=== PATIENT | female | born 1970 | race Caucasian/White ===

== ENCOUNTER 2020-07-03 10:10 | Outpatient (REF) | payer MEDICARE, SELFPAY | END 2020-07-03 10:11 | disposition home or self-care (01) | LOC: HO.HMGCLDS 10:10 | PROVIDERS: PCP Internal Medicine; Visit Provider Internal Medicine | DX: Z20.828 Contact with and (suspected) exposure to other viral communicable diseases (principal) | CPT/HCPCS: 87635 ==

== ENCOUNTER 2020-08-05 11:42 | Outpatient (REF) | payer MEDICARE, SELFPAY | END 2020-08-05 11:43 | disposition home or self-care (01) | LOC: HO.HMGCLDS 11:42 | PROVIDERS: PCP Internal Medicine; Visit Provider Internal Medicine | DX: Z20.828 Contact with and (suspected) exposure to other viral communicable diseases (principal) | CPT/HCPCS: C9803; U0003 ==

== ENCOUNTER 2021-07-30 09:22 | Outpatient (REF) | payer MEDICARE, SELFPAY ==
[2021-07-30 11:25] LABS: MANUAL DIFF FLAG NO
[2021-07-30 11:43] LABS: Basophils Percent Auto 0.1 % (0-2); Eosinophils Absolute Auto 0.1 X10*3/uL (0.0-0.4); Eosinophils Percent Auto 1.3 % (0-4); Hematocrit 41.4 % (37.0-47.0); Hemoglobin 13.6 g/dl (12.0-16.0); Imm Gran Abs Auto 0.03 X10*3/uL (0.00-0.03); Imm Gran Pct Auto 0.3 % (0.0-0.4); Lymphocytes Absolute Auto 2.8 X10*3/uL (1.2-4.9); Lymphocytes Percent Auto 32.5 % (20-40); Mean Corpuscular HGB Conc 32.9 g/dl (31.0-35.0); Mean Corpuscular Hemoglobin 28.9 pg (27.0-33.0); Mean Corpuscular Volume 87.9 fL (80.0-98.0); Mean Platelet Volume 10.1 fL (9.4-12.3); Monocytes Absolute Auto 0.5 X10*3/uL (0.1-1.2); Monocytes Percent Auto 5.2 % (2-11); Neutrophils Absolute Auto 5.23 x10*3/uL (2.0-8.3); Neutrophils Percent Auto 60.6 % (45-73); Platelet Count 292 X10*3/uL (160-400); Red Blood Count 4.71 X10*6/uL (4.20-5.50); Red Cell Distribution Width 12.9 % (11.0-16.0); White Blood Count 8.6 X10*3/uL (4.8-10.8)
[2021-07-30 12:20] LABS: Alanine Aminotransferase 12 U/L (0-31); Albumin Level 4.1 g/dL (3.5-5.0); Alkaline Phosphatase 63 U/L (39-117); Anion Gap 11 (12-20); Aspartate Amino Transferase 15 U/L (5-31); Bilirubin Total 0.6 mg/dL (0.0-1.0); Blood Urea Nitrogen 13 mg/dL (9-16); Calcium 9.5 mg/dL (8.4-10.2); Carbon Dioxide 26 mmol/L (22-29); Chloride 106 mmol/L (96-108); Cholesterol 199 mg/dL; Estimated Glomerular Filt Rate > 60; Glucose Fasting 88 mg/dL (60-99); HDL Cholesterol 52 mg/dL; LDL Cholesterol Calculated 119 mg/dl; Potassium 3.9 mmol/L (3.3-5.1); Sodium 139 mmol/L (135-145); Total Protein 6.7 g/dL (6.5-8.0); Triglycerides 142 mg/dL
[2021-07-30 12:30] LABS: Thyroid Stimulating Hormone 1.86 uIU/mL (0.32-4.0); Vitamin D 25-OH Total 26.1 ng/mL (>30)
== END 2021-07-30 09:23 | disposition home or self-care (01) ==
LOC: HO.HMGCLDS 09:22
PROVIDERS: Visit Provider Internal Medicine
DX: I10 Essential (primary) hypertension (principal); E78.00 Pure hypercholesterolemia, unspecified
CPT/HCPCS: 36415; 80053; 80061; 82306; 84443; 85025

== ENCOUNTER 2021-08-11 13:07 | Outpatient (REF) | payer MEDICARE, SELFPAY | END 2021-08-11 13:08 | disposition home or self-care (01) | LOC: HO.HMGCLDS 13:07 | PROVIDERS: PCP Internal Medicine; Visit Provider Internal Medicine | DX: Z20.822 Contact with and (suspected) exposure to COVID-19 (principal) | CPT/HCPCS: C9803; U0003; U0005 ==

== ENCOUNTER 2022-07-27 08:58 | Outpatient (REF) | payer MEDICARE, SELFPAY ==
[2022-07-27 11:37] LABS: MANUAL DIFF FLAG NO
[2022-07-27 11:53] LABS: Basophils Percent Auto 0.4 % (0-2); Eosinophils Absolute Auto 0.1 X10*3/uL (0.0-0.4); Eosinophils Percent Auto 1.1 % (0-4); Hematocrit 46.2 % (37.0-47.0); Hemoglobin 15.5 g/dl (12.0-16.0); Imm Gran Abs Auto 0.02 X10*3/uL (0.00-0.03); Imm Gran Pct Auto 0.3 % (0.0-0.4); Lymphocytes Absolute Auto 2.7 X10*3/uL (1.2-4.9); Lymphocytes Percent Auto 34.4 % (20-40); Mean Corpuscular HGB Conc 33.5 g/dl (31.0-35.0); Mean Corpuscular Hemoglobin 28.4 pg (27.0-33.0); Mean Corpuscular Volume 84.6 fL (80.0-98.0); Mean Platelet Volume 10.1 fL (9.4-12.3); Monocytes Absolute Auto 0.6 X10*3/uL (0.1-1.2); Neutrophils Absolute Auto 4.5 x10*3/uL (2.0-8.3); Neutrophils Percent Auto 56.8 % (45-73); Platelet Count 378 X10*3/uL (160-400); Red Blood Count 5.46 X10*6/uL (4.20-5.50); Red Cell Distribution Width 12.6 % (11.0-16.0); White Blood Count 7.8 X10*3/uL (4.8-10.8)
[2022-07-27 12:31] LABS: Thyroid Stimulating Hormone 1.15 uIU/mL (0.32-4.0); Vitamin D 25-OH Total 27.1 ng/mL (>30)
[2022-07-27 12:41] LABS: Alanine Aminotransferase 16 U/L (0-31); Albumin Level 4.6 g/dL (3.5-5.0); Alkaline Phosphatase 75 U/L (39-117); Anion Gap 19 (12-20); Aspartate Amino Transferase 22 U/L (5-31); Bilirubin Total 0.8 mg/dL (0.0-1.0); Blood Urea Nitrogen 19 mg/dL (9-16); Calcium 10.5 mg/dL (8.4-10.2); Carbon Dioxide 25 mmol/L (22-29); Chloride 102 mmol/L (96-108); Cholesterol 236 mg/dL; Estimated Glomerular Filt Rate > 60; Glucose Fasting 91 mg/dL (60-99); HDL Cholesterol 59 mg/dL; LDL Cholesterol Calculated 155 mg/dl; Potassium 3.1 mmol/L (3.3-5.1); Sodium 143 mmol/L (135-145); Total Protein 7.7 g/dL (6.5-8.0); Triglycerides 111 mg/dL
== END 2022-07-27 08:59 | disposition home or self-care (01) ==
LOC: HO.HMGCLDS 08:58
PROVIDERS: PCP Internal Medicine; Visit Provider Internal Medicine
DX: Z00.00 Encounter for general adult medical examination without abnormal findings (principal); E78.00 Pure hypercholesterolemia, unspecified; I10 Essential (primary) hypertension
CPT/HCPCS: 36415; 80053; 80061; 82306; 84443; 85025

== ENCOUNTER 2024-03-03 08:30 | Day surgery (SDC) | payer BC, SELFPAY ==
[2024-03-01 15:08] VITALS: BMI 36.3
[2024-03-03 08:37] VITALS: BMI 34.0
[2024-03-03 08:57] VITALS: BP 152/78; PULSE 72; RESP 16; TEMP 35.8; O2SAT 95
[2024-03-03] MEDS: Lactated Ringers 1,000 ML 80 ML IVCONT (08:59)
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
--- NOTE | 2024-03-03 10:29 | P.HPSUR_ITS ---
Pre-Procedural Eval Section A - 24 Hr Update-Section A only Date of Service: 03/03/24 Section B - Complete if H&P > 30 days Chief Complaint: Encounter for screening for malignant neoplasm of Details of Present Illness: see H&P no changes Relevant Family History (Specify if Yes): No Relevant Social History: None Present Medications: see Short Stay Collaborative assessment Medical History: No relevant PMH History of Previous Operations: No relevant previous surgery Allergies: Allergies Allergy/AdvReac Type Severity Reaction Status Date / Time No Known Allergies Allergy Verified 03/01/24 15:05 Review of Systems Sugical H&P ROS: Negative: Constitution, Cardiovascular, Respiratory, Neurological, Psychiatric, Hem-Onc, Allergic/Immunologic, Gastrointestinal, Genitourinary, Musculoskeletal, Integumentary, Endocrine and Eyes/Ears/No se/Throat Exam Surgical H&P Exam: Normal: HEENT, Normal: Heart, Normal: Lungs, Normal: Extremities, Normal: Abdomen, Normal: Skin and Normal: Neurological Plan Diagnosis/Plan: Unchanged I have reviewed the history and physical and performed a pertinent physical examination on my patient. No changes have occurred unless specified. Time Spent With Patient Time: Total time managing care of this patient today ____ minutes.
[2024-03-03 11:19] VITALS: BP 90/41; PULSE 62; RESP 16; TEMP 36.1; O2SAT 93
[2024-03-03 11:21] VITALS: BP 92/49; PULSE 52; RESP 16; O2SAT 96
[2024-03-03 11:38] VITALS: BP 108/58; PULSE 54; RESP 16; O2SAT 98
--- NOTE | 2024-03-03 11:43 | OP_ITS ---
DATE OF SERVICE: 03/03/2024 SURGEON: Magdaleno Dunn MD INDICATIONS: Colon cancer screening and prior history of adenomatous colon polyps. PREOPERATIVE DIAGNOSIS: POSTOPERATIVE DIAGNOSIS: PROCEDURE PERFORMED: Colonoscopy to the terminal ileum with snare polypectomy. ESTIMATED BLOOD LOSS: COMPLICATIONS: ANESTHESIA: Monitored anesthesia care. ASSISTANTS: SPECIMENS: DESCRIPTION OF PROCEDURE: A history and physical was performed. The risks and benefits of the procedure were explained to the patient and informed consent was obtained. The patient was placed in the left lateral decubitus position. A digital rectal exam was performed and was found to be normal. The Olympus pediatric video colonoscope was introduced into the rectum and advanced to the cecum. The cecum was identified by transillumination, palpation, and identification of ileocecal valve. Examination was performed and the scope was removed. She tolerated the procedure well and was returned to the recovery area in stable condition. FINDINGS: The terminal ileum was examined and appeared normal. The visualized colonic mucosa was normal. The quality of the prep was good. A single polyp measuring approximately 7 mm were identified in the rectum and removed with a biopsy forceps. No other polyps were identified. Retroflexed examination showed small internal hemorrhoids. IMPRESSION: Colon polyp. RECOMMENDATION: Follow up the biopsy results. MD RAMIRO Milner/MELVINL / [id number]
[2024-03-03 11:52] VITALS: BP 104/62; PULSE 59; RESP 16; TEMP 36.1; O2SAT 98
== END 2024-03-03 12:15 | disposition home or self-care (01) ==
PROVIDERS: PCP Obstetrics & Gynecology; Visit Provider Internal Medicine Gastroenterology
PROC: 0DJD8ZZ Inspection of Lower Intestinal Tract, Via Natural or Artificial Opening Endoscopic (ICD-10-PCS; CPT 45378; principal; 2024-03-03 10:20)
DX: Z12.11 Encounter for screening for malignant neoplasm of colon (principal); D12.8 Benign neoplasm of rectum; Z86.010 Personal history of colon polyps; I10 Essential (primary) hypertension; H54.62 Unqualified visual loss, left eye, normal vision right eye; Z79.899 Other long term (current) drug therapy
CPT/HCPCS: 45385; 88305; J2704

== ENCOUNTER 2024-04-01 12:18 | Outpatient (REF) | payer BC, SELFPAY ==
[2024-04-01 13:00] LABS: MANUAL DIFF FLAG NO
[2024-04-01 13:05] LABS: Basophils Percent Auto 0.4 % (0-2); Eosinophils Absolute Auto 0.1 X10*3/uL (0.0-0.4); Eosinophils Percent Auto 1.7 % (0-4); Hematocrit 41.3 % (37.0-47.0); Hemoglobin 13.6 g/dl (12.0-16.0); Imm Gran Abs Auto 0.03 X10*3/uL (0.00-0.03); Imm Gran Pct Auto 0.4 % (0.0-0.4); Lymphocytes Absolute Auto 3.2 X10*3/uL (1.2-4.9); Lymphocytes Percent Auto 41.4 % (20-40); Mean Corpuscular HGB Conc 32.9 g/dl (31.0-35.0); Mean Corpuscular Hemoglobin 27.9 pg (27.0-33.0); Mean Corpuscular Volume 84.8 fL (80.0-98.0); Mean Platelet Volume 10.2 fL (9.4-12.3); Monocytes Absolute Auto 0.4 X10*3/uL (0.1-1.2); Monocytes Percent Auto 5.7 % (2-11); Neutrophils Absolute Auto 3.9 x10*3/uL (2.0-8.3); Neutrophils Percent Auto 50.4 % (45-73); Platelet Count 316 X10*3/uL (160-400); Red Blood Count 4.87 X10*6/uL (4.20-5.50); Red Cell Distribution Width 12.8 % (11.0-16.0); White Blood Count 7.7 X10*3/uL (4.8-10.8)
[2024-04-01 13:46] LABS: Alanine Aminotransferase 19 U/L (0-31); Albumin Level 4.1 g/dL (3.5-5.0); Alkaline Phosphatase 74 U/L (39-117); Anion Gap 12 (12-20); Aspartate Amino Transferase 23 U/L (5-31); Bilirubin Total 0.4 mg/dL (0.0-1.0); Blood Urea Nitrogen 17 mg/dL (9-16); Calcium 9.7 mg/dL (8.4-10.2); Carbon Dioxide 28 mmol/L (22-29); Chloride 106 mmol/L (96-108); Cholesterol 194 mg/dL (<200); Estimated Glomerular Filt Rate > 60; Glucose Fasting 87 mg/dL (60-99); HDL Cholesterol 49 mg/dL (>40); LDL Cholesterol Calculated 121 mg/dL (<100); Potassium 3.5 mmol/L (3.3-5.1); Sodium 142 mmol/L (135-145); Triglycerides 121 mg/dL (<150)
[2024-04-01 14:00] LABS: Thyroid Stimulating Hormone 1.24 uIU/mL (0.32-4.0); Vitamin D 25-OH Total 30.6 ng/mL (>30)
== END 2024-04-01 12:19 | disposition home or self-care (01) ==
LOC: HO.HMGCLDS 12:18
PROVIDERS: PCP Internal Medicine; Visit Provider Internal Medicine
DX: Z00.00 Encounter for general adult medical examination without abnormal findings (principal); I10 Essential (primary) hypertension; E78.00 Pure hypercholesterolemia, unspecified; F41.9 Anxiety disorder, unspecified
CPT/HCPCS: 36415; 80053; 80061; 82306; 84443; 85025

== ENCOUNTER 2024-11-03 08:59 | Outpatient (REF) | payer BC, SELFPAY ==
--- OUTSIDE RECORDS SUMMARY | 2024-11-03 09:18 | XMS_ITS ---
Author Organization Francis Bacon DO, FACP Address [address], [place] [phone] Care Team Providers Care Cartography Teacher Name Role Phone Francis Bacon Primary Care Provider REASON FOR VISIT FYI only Encounters Encounter Location Date Provider Diagnosis Francis Bacon DO FACP [address] [place], [place] [phone] 09/05/2024 Francis Bacon PLAN OF TREATMENT No Information
--- OUTSIDE RECORDS SUMMARY | 2024-11-03 09:19 | XMS_ITS ---
Author Organization [facility] Address [address] [place] [address] Care Team Providers Care Ampoule Washing Machine Operator Name Role Phone Jordi (RETIRED) Francis SANTIAGO Primary Care Provid er Unavailable Magdaleno Dunn Jr Unavailable [phone] ALLERGIES No Known Allergies REASON FOR VISIT Patient presents today for a screening colonoscopy MEDICATIONS Medication SIG (Take, Route, Frequency, Duration) Notes Start Date End Date Status MiraLax (colon prep) 8.3 oun ce ((238) grams mixed with Gatorade or Crystal Light orally begin at 5:00 p.m. the day before the procedure for 1 day 01/20/2024 Active Escitalopram Oxalate 10 MG Oral for 90 Active hydroCHLOROthiazide 25 MG TAKE 1 TABLET BY MOUTH EVERY DAY Oral for 90 Active Lisinopril 5 MG TAKE 1 TABLET BY MOUTH EVERY DAY Oral for 90 Active SOCIAL HISTORY Tobacco Use: Social History Observation Description Date Details (start date - stop date) Never Smoker NA - NA Sex Assigned At : Social History Observation Description Sex Assigned At Unknown Tobacco Use/Smoking Question Answer Notes Patient is a nonsmoker Alcohol Screen Question Answer Notes Did you have a drink containing alcohol in the p ast year? 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 (Z79.899) Active confirmed 49300018481494000 Problem Encounter for other preprocedural examination (Z01.818) Active confirmed 436211824 VITAL SIGNS BMI 36.33 kg/m2 01/20/2024 Blood pressure systolic 00 mm Hg 01/20/20 24 Blood pressure diastolic 00 mm Hg 024 Height 67 in 01/20/2024 Weight 232 lbs 01/20/2024 Encounters Encounter Location Date Provider Diagnosis [facility] [address] [place] [address] 01/20/2024 Magdaleno Dunn Jr Colon cancer screening Z12.11 ; Encounter for other preprocedural examination Z01.818 ; Personal history of colonic polyps Z86.010 and [facility] current use of diuretic Z79.899 ASSESSMENTS Encounter Date Diagnosis Assessment Notes Treatment Notes Treatment Clinical Notes 01/20/2024 Colon cancer screening (ICD-10 - Z12.11) Colonoscopy material was printed 01/20/2024 Encounter for other preprocedural examination (ICD-10 - Z01.818) 01/20/2024 Personal history of colonic polyps (ICD-10 - Z86.010) 01/20/2024 relay adjuster current use of diuretic (ICD-10 - Z79.899) PLAN OF TREATMENT Medication Medication Name Sig Start Date Stop Date Notes MiraLax (colon prep) 8.3 oun ce ((238) grams mixed with Gatorade or Crystal Light orally begin at 5:00 p.m. the day before the procedure for 1 day 01/20/2024 Treatment Notes Assessment Notes Colon cancer screening Colonoscopy mater ial was printed Future Test Test Name Order Date COLONOSCOPY 01/20/2024 Next Appt Details Follow Up: 1 Year, Reason: Progress Notes * Examination Category Sub-Category Detail Notes General Examination GENERAL APPEARANCE: in no ac native distress HEAD: normocephalic EYES: sclera non-icteric NECK/THYROID: no lymphadenopathy HEART: S1, S2 normal, no mu rmurs CHEST: normal shape and exp ansion LUNGS: clear to auscultatio n bilaterally ABDOMEN: soft, nontender, non distended, bowel sounds present, no organomegaly SKIN: anicteric EXTREMITIES: no clubbing, cyanosi s, or edema PSYCH: cognitive function i ntact ORAL CAVITY: mucosa moist
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
--- OUTSIDE RECORDS SUMMARY | 2024-11-03 09:19 | XMS_ITS ---
Author Organization [facility] Address [address] [place] [phone] Care Team Providers Care Tour Manager Name Role Phone Jordi (RETIRED) Francis SANTIAGO Primary Care Provid er Unavailable Magdaleno Dunn Jr [phone] REASON FOR VISIT pathology Encounters Encounter Location Date Provider Diagnosis [facility] [address] [place] [phone] 03/08/2024 Magdaleno Dunn Jr PLAN OF TREATMENT No Information
--- OUTSIDE RECORDS SUMMARY | 2024-11-03 09:19 | XMS_ITS ---
Author Organization Francis Bacon DO, [facility] Address [address], [place] [phone] Care Team Providers Care Director Of Operations Support Name Role Phone Francis Bacon Primary Care Provider REASON FOR VISIT Refills MEDICATIONS Medication SIG (Take, Route, Frequency, Duration) Notes Start Date End Date Status Zolpidem Tartrate 5 MG 1 tablet at bedti me as needed Orally Once a day for 30 days 09/05/2024 Active Lisinopril 5 MG 1 tablet Orally Once a day for 90 days Active hydroCHLOROthiazide 25 MG 1 tablet in th e morning Orally Once a day for 90 days Active Encounters Encounter Location Date Provider Diagnosis Francis Bacon DO, [address] [phone] 09/05/2024 Francis Bacon Anxiety F41.9 and Essential hypertension I10 ASSESSMENTS Encounter Date Diagnosis Assessment Notes Treatment Notes Treatment Clinical Notes 09/05/2024 Anxiety (ICD-10 - F41.9) 09/05/2024 Essential hypertension (ICD-10 - I10) PLAN OF TREATMENT Medication Medication Name Sig Start Date Stop Date Notes Zolpidem Tartrate 5 MG 1 tablet at bedti me as needed Orally Once a day for 30 days 09/05/2024 Lisinopril 5 MG 1 tablet Orally Once a day for 90 days hydroCHLOROthiazide 25 MG 1 tablet in th e morning Orally Once a day for 90 days
--- OUTSIDE RECORDS SUMMARY | 2024-11-03 09:19 | XMS_ITS ---
Author Organization [facility] Address [address] [place] [address] Care Team Providers Care Glass Furnace Tender Name Role Phone Jordi (RETIRED) Francis SANTIAGO Primary Care Provid er Unavailable Magdaleno Dunn Jr REASON FOR VISIT screening,hx polyps Encounters Encounter Location Date Provider Diagnosis [facility] Outpatient [address] [place] [phone] 03/03/2024 Magdaleno Dunn Jr Encounter for screening colonoscopy Z12.11 ; Personal history of colonic polyps Z86.010 and Colon polyps K63.5 ASSESSMENTS Encounter Date Diagnosis Assessment Notes Treatment Notes Treatment Clinical Notes 03/03/2024 Encounter for screening colonoscopy (ICD-10 - Z12.11) 03/03/2024 Personal history of colonic polyps (ICD-10 - Z86.010) 03/03/2024 Colon polyps (ICD-10 - K63.5) PLAN OF TREATMENT No Information
--- OUTSIDE RECORDS SUMMARY | 2024-11-03 09:19 | XMS_ITS ---
Author Organization Francis Bacon DO, FACP Address [address] [place], [place] [phone] Care Team Providers Care Refinery Pipeline Operator Name Role Phone Francis Bacon Primary Care Provider [phone] REASON FOR VISIT 6 month f/u Encounters Encounter Location Date Provider Diagnosis Francis Bacon DO FACP [address] [place] [phone] 10/06/2024 Francis Bacon PLAN OF TREATMENT No Information
--- OUTSIDE RECORDS SUMMARY | 2024-11-03 09:19 | XMS_ITS | Patient Health Record ---
Author Organization Francis Bacon DO, FACP Address [address] [place] [id number] Care Team Providers Care Television Maintenance Man Name Role Phone JordiFrancis nagy Primary Care Provider ALLERGIES No Known Allergies RESULTS Component Value Reference Range Notes Complete Blood Count Auto Di ff Reviewed date:04/01/2024 02:01:56 PM Interpretation:Normal Performing Lab:[facility], [address] [place] [id number] Notes/Report: White Blood Count 7.7 4.8-10.8 X10*3/uL Red Blood Count 4.87 4.20-5.50 X10*6/uL Hemoglobin 13.6 12.0-16.0 g/dl Hematocrit 41.3 37.0-47.0 % Mean Corpuscular Volume 84.8 80.0-98.0 fL Mean Corpuscular Hemoglobin 27.9 27.0-33.0 pg Mean Corpuscular HGB Conc 32.9 31.0-35.0 g/dl Red Cell Distribution Width 12.8 11.0-16.0 % Platelet Count 316 160-400 X10*3/uL Mean Platelet Volume 10.2 9.4-12.3 fL Neutrophils Percent Auto 50.4 45-73 % Imm Gran Pct Auto 0.4 0.0-0.4 % Lymphocytes Percent Auto 41.4 20-40 % Monocytes Percent Auto 5.7 2-11 % Eosinophils Percent Auto 1.7 0-4 % Basophils Percent Auto 0.4 0-2 % NRBC Pct Auto 0.0 0.0-0.2 /100WBC Neutrophils Absolute Auto 3.9 2.0-8.3 x10*3/u L Imm Gran Abs Auto 0.03 0.00-0.03 X10*3/uL Lymphocytes Absolute Auto 3.2 1.2-4.9 X10*3/u L Monocytes Absolute Auto 0.4 0.1-1.2 X10*3/uL Eosinophils Absolute Auto 0.1 0.0-0.4 X10*3/u L Basophils Absolute Auto 0.0 0.0-0.2 X10*3/uL NRBC Abs Auto 0.000 0.0-0.012 X10*3/uL Comprehensive [place]. Panel Fa st Reviewed date:04/01/2024 02:04:15 PM Interpretation:Normal Performing Lab:[facility], [address] [place] [phone] Notes/Report: Sodium 142 135-145 mmol/L Potassium 3.5 3.3-5.1 mmol/L Chloride 106 96-108 mmol/L Carbon Dioxide 28 22-29 mmol/L Anion Gap 12 12-20 Blood Urea Nitrogen 17 9-16 mg/dL Creatinine 0.79 0.5-1.4 mg/dL Estimated Glomerular Filt Rate > 60 NOTE: For -Faro[place] individuals, multiply the result by 1.210. Chronic Kidney Disease: Estimated GFR < 60 mL/min/1.73m2 Severe Kidney Disease: Estimated GFR < 15 mL/min/1.73m2 Glucose Fasting 87 60-99 mg/dL Calcium 9.7 8.4-10.2 mg/dL Bilirubin Total 0.4 0.0-1.0 mg/dL Aspartate Amino Transferase 23 5-31 U/L Alanine Aminotransferase 19 0-31 U/L Total Protein 7.0 6.5-8.0 g/dL Albumin Level 4.1 3.5-5.0 g/dL Alkaline Phosphatase 74 39-117 U/L Lipid Panel Reviewed date:04/01/2024 02:04:15 PM Interpretation:Normal Performing Lab:[address] [phone] Notes/Report: Triglycerides 121 <150 mg/dL Desirable Triglyceride: less than 150 mg/dL Borderline High Triglyceride 150-199 mg/dL High Triglyceride: 200-499 mg/dL Very High Triglyceride: greater than or equal to 5OO mg/dL Cholesterol 194 <200 mg/dL Desirable Cholesterol: less than 200 mg/dL Borderline High Cholesterol: 200-239 mg/dL High Cholesterol: greater than 239 mg/dL LDL Cholesterol Calculated 121 <100 mg/dL Desirable LDL: less than 100 mg/dL Near Optimal/Above Optimal LDL: 110-129 mg/dL Borderline High LDL: 130-159 mg/dL High LDL: 160-189 mg/dL Very High LDL: greater than or equal to 190 mg/dL HDL Cholesterol 49 >40 mg/dL Desirable HDL: greater than 40 mg/dL Note: This HDL assay may give artificially low results in patients with liver disease. Vitamin D 25-OH Total Reviewed date:04/01/2024 02:04:15 PM Interpretation:Normal Performing Lab:[address] [phone] Notes/Report: Vitamin D 25-OH Total 30.6 >30 ng/mL Health Based Reference Values* < 20 ng/mL Deficient 20-30 ng/mL Insufficient > 30 ng/mL Sufficient *Andres GILBERT. N Engl J Med. 2007;357:266-280 Care must be taken in interpreting Vitamin D results from different laboratories and methodologies. Published data demonstrated that results from patients undergoing hemodialysis may show a negative bias when tested with various automated 25-OH vitamin D assays when compared to LC-MS/MS. When testing samples from patients whose predominant form of Vitamin D is Vitamin D2, such as patients receiving Vitamin D2 supplementation, results that are subtherapeutic should be confirmed with another method such as LC-MS/MS. Thyroid Stimulating Hormone Reviewed date:04/01/2024 02:04:15 PM Interpretation:Normal Performing Lab:[facility], [address] [place] [phone] Notes/Report: Thyroid Stimulating Hormone 1.24 0.32-4.0 uIU/ mL TSH 3rd Generation ([facility]) REASON FOR REFERRAL No Information MEDICATIONS Medication SIG (Take, Route, Frequency, Duration) Notes Start Date End Date Status Zolpidem Tartrate 5 MG 1 tablet at bedti dc as needed Orally Once a day for 30 days 09/05/2024 Active Lisinopril 5 MG 1 tablet Orally Once a day for 90 days Active hydroCHLOROthiazide 25 MG 1 tablet in th e morning Orally Once a day for 90 days Active Diclofenac Sodium 75 MG 1 tablet with fo od as needed Orally Twice a day for 30 days 06/21/2024 Active IMMUNIZATIONS Vaccine Route Administration Date Status Comme nts TDaP IM Intramuscular 05/18/2012 Administered Influenza Quad IM Intramuscular 09/26/2017 Administered Influenza Quad IM Intramuscular 06/22/2018 Administered Influenza Quad Unknown 08/03/2019 Administered Influenza Quad IM Intramuscular 08/04/2021 Administered COVID-19 Moderna Vaccine Unknown 12/25/2020 Administere d Influenza Quad Unknown 06/25/2020 Administered COVID-19 Moderna Vaccine Unknown 01/26/2021 Administere d Influenza Quad Unknown 09/15/2022 Administered Influenza Quad Unknown 06/02/2017 Refused SOCIAL HISTORY Tobacco Use: Social History Observation Description Date Details (start date - stop date) Never Smoker NA - NA Sex Assigned At : Social History Observation Description Sex Assigned At Unknown Tobacco Use/Smoking Question Answer Notes Patient is a nonsmoker Additional Findings: Tobacco Non-User Cu rrent non-smoker, currently using no form of tobacco Alcohol Screen Question Answer Notes Did you have a drink contain ing alcohol in the past year? Yes How often did you have a dri nk containing alcohol in the past year? 2 to 4 times a month (2 points) How many drinks did you have on a typical day when you were drinking in the past year? 1 or 2 drinks (0 point) How often did you have 6 or more drinks on one occasion in the past year? Never (0 point) Points 2 Interpretation Negative PROBLEMS Problem Type ICD Code Onset Dates Problem Status W/U Status Risk SNOMED Code Notes Problem Anxiety (F41.9) Active confirmed 046651 02 Problem Essential hypertensi on (I10) Active confirmed 88861294 Problem Hypercholesterolemia (E78.00) Active confirmed 15731947 VITAL SIGNS Blood pressure diastolic 70 mm Hg 04/05/2024 Height 67 in 05/02/2024 Blood pressure systolic 128 mm Hg 04/05/2024 Weight 221 lbs 05/02/2024 BMI 34.61 kg/m2 05/02/2024 Encounters Encounter Location Date Provider Diagnosis Francis Bacon DO, FACP [address] [place], [place] [id number] 03/22/2024 Francis Bacon DO, FACP [address] [place], [place] [id number] 04/05/2024 Francis Bacon Anxiety F41.9 and Essential hypertension I10 Francis Durand Jordi SANTIAGO, [facility] [address] [place], [place] [id number] 03/28/2024 Francis Bacon Francis Durand Jordi DO, [address] [id number] 05/02/2024 Francis Bacon Anxiety F41.9 Francis Durand Jordi DO, [facility] [address] [place], [place] [id number] 05/03/2024 Francis Bacon Francis Durand Jordi DO, [facility] [address] [place], [place] [id number] 06/21/2024 Francis Jordi Francis Bacon DO, [address] [id number] 09/05/2024 Francis Bacon Anxiety F41.9 and Essential hypertension I10 Francis Durand Jordi SANTIAGO, [facility] [address] [place], [place] [id number] 09/05/2024 Francis Jordi Francis Durand Jordi , [address] [id number] 10/06/2024 Francis Bacon ASSESSMENTS Encounter Date Diagnosis Assessment Notes Treatment Notes Treatment Clinical Notes 04/05/2024 Anxiety (ICD-10 - F41.9) Taper and discontinue the escitalopram. Call in monthly with level of anxiety and weight. Call sooner as needed. 04/05/2024 Essential hypertension (ICD-10 - I10) 05/02/2024 Anxiety (ICD-10 - F41.9) 09/05/2024 Anxiety (ICD-10 - F41.9) 09/05/2024 Essential hypertension (ICD-10 - I10) PLAN OF TREATMENT No Information Insurance Providers Payer Name Payer Address Payer Phone Subscriber Number Group Number Insured Name Patient Relationship to Insured Coverage Start Date Coverage End Date [facility] [address] [place], [place] [id number] Courtney Garcia Self - patient is the insured MEDICAL (GENERAL) HISTORY Medical History History ICD Code hypertension hypercholesterolemia hepatitis C exposure, but no hepatitis C infection optic nerve damage, legally blind Anxiety F41.9 Surgical History Surgery Date(Month/Year) ovarian cyst resection colostomy, temporary, due to trauma section
--- OUTSIDE RECORDS SUMMARY | 2024-11-03 09:20 | XMS_ITS | Data Portability ---
Author Organization [facility], [facility] Address [address] [place] [address] Care Team Providers Care Slunk Skin Curer Name Role Phone JORGE VILLARREAL Primary Care Provider Assessment No assessment recorded. Plan of Treatment Reminders Order Date Submit Date Provider Last Modified By Organization Details Last Modified Time Details Appointments None recorded. Lab None recorded. Referral None recorded. Procedures None recorded. Surgeries None recorded. Imaging XR, knee, 4 or more view - rm 113 LT knee 2023 [email or web address] [facility], [address], [address], [place], [address], 4 14:13:12 MRI, knee, w/o contrast - ? MMT of LT knee 2023 [email or web address] [facility] ([facility]), [address], [place], [address], 4 14:13:12 Medication Orders None recorded. Patient TargetsNo targets recorded. Patient InstructionsNo instructions recorded. Reason for Referral None Reported. Results Created Date Observation Date Name Description Value Unit Range Abnormal Flag Note LastModifiedBy Organization Detail LastModifiedTime 07/04/20 24 07/04/2024 XR, knee, 4 or more view [email or web address] ?Encry pted=s hAaTro YD8dLq bEUv6g %2BXZw aYqtaq 0bqfl% 2Fg9IQ a4ajBk vP9nXo QUaueC m3YtLR FvZlgJ JJ8mAn HZtai3 7j7859 AC0Kqa 3mGVKG nKiQtr MwF INTERFACE [facility] [address], [place], [address], 07/04/2024 17:13:43 07/04/2007/04/2024 XR, knee, 4 or more view [email or web address] ?Encry pted=s hAaTro YD8dLq bEUv6g %2BXZw aYqtaq 0bqfl% 2Fg9IQ a4ajBk vP9nXo QUaueC m3YtLR FvZlgJ JJ8mAn HZtai3 3v7729 AC0Kqa 3mGVKG nKiQtr MwF INTERFACE [facility] [address], [place], [address], 07/04/2024 17:13:45 07/07/20 XR, knee, 1 or 2 view No observ ation record ed. [email or web address] Not Available 2023 14:18:54 07/07/20 24 06/19/2024 XR, knee, 1 or 2 view No observ ation record ed. BARCODE Not Available 2023 12:39:17 07/20/2007/18/2024 MRI, knee, w/o contr ast [facility] Access ion Number : [id number] Patiremigio t Name: Jules ruby, Courtney Medica l Record Number : [id number] Date of : 1969 Date of Exam: 2023 Referr ing Physic melissa: Ramez Crawleylan [facility] [address], [address] [place] [address] Exam: MR Knee (C-) CPT 52838 - Left Room Descri ption: [facility] Pion 3T MRI left knee Histor y: Pain Findin gs: Comple x tear at the metal model maker ior horn-b jose juncti on of the medial menisc us. The tear has radial and horizo ntal compon ents. Latera l menisc us is intact . Mild myxoid degene ration in the anteri or horn. The ACL and PCL are intact The MCL is intact The LCL comple x includ ing the biceps femori s, poplit eus and fibula r collat eral ligame nts are intact The medial and latera l patell ar retina cula are intact . Erosio ns within the medial patell ar facet The extens or mechan ism is intact . Impres saray: Comple x tear at the metal model maker ior horn-b jose juncti on of the medial menisc us. Mild myxoid degene ration in the anteri or horn of the latera l menisc us Mild chondr omalac ia patell a Electr onical ly Signed By: Rogerio Francois MD dsaa [facility] ([facility]) [address], [place], [address], 08/31/2024 16:32:42 Result Notes None recorded. Problems Name Problem SNOMED Code Status Onset Date Resolution Date Notes Provider Name and Address Organization Details Recorded Time Pain of left knee joint 504111192840905 Active 2023 GO JANSEN [place], [place] - [facility] 4 17:02:12 Acute meniscal tear, medial 857716096 Active 2023 Damon Alvares PA-C [address], [place], [address], [facility] - [facility] 06:55:29 Problem Notes None recorded. Procedures Surgical History None recorded. Imaging Results Imaging Date Name Status LastModified by Organiz ation Details LastModified Time 07/04/2024 XR, knee, 4 or more view completed INTERFACE [facility] [address], [place], [address], 07/04/2024 17:13:43 07/04/2024 XR, knee, 4 or more view completed INTERFACE [facility] [address], [place], [address], 07/04/2024 17:13:45 07/07/2024 XR, knee, 1 or 2 view completed [email or web address] Information not available 07/11/2024 14:18:54 06/19/2024 XR, knee, 1 or 2 view completed BARCODE Information not available 07/07/2024 12:39:17 07/18/2024 MRI, knee, w/o contrast completed [email or web address] [facility] ([facility]) [address], [place], [address], 08/31/2024 16:32:42 Procedure Notes None recorded. Medical Equipment None Reported. Allergies No known drug allergies Medications Name Sig Start Date Stop Date Status Note LastModified by Organization Details LastModified Time azithromycin 250 mg tablet TAKE 2 TABLETS BY MOUTH TODAY, THEN TAKE 1 TABLET DAILY FOR 4 DAYS DIRECTED active Not Available Not Available No t Available diclofenac sodium 75 mg tablet,delayed release TAKE 1 TABLET WITH FOOD NEEDED ORALLY TWICE A DAY 30 DAYS active Not Available Not Available No t Available lisinopril 5 mg tablet TAKE 1 TABLET BY MOUTH EVERY DAY FOR 90 DAYS active Not Available Not Available No t Available hydrochlorothi azide 25 mg tablet TAKE 1 TABLET BY MOUTH EVERY DAY IN THE MORNING FOR 90 DAYS active Not Available Not Available No t Available zolpidem 5 mg tablet TAKE 1 TABLET BY MOUTH EVERY DAY AT BEDTIME NEEDED FOR 30 DAYS active Not Available Not Available No t Available naproxen 500 mg tablet Take 1 tablet twice a day by oral route for 30 days. active Not Available Not Available No t Available oxycodone 5 mg tablet TAKE 1-2 TABLETS EVERY 6 HOURS PRN. 3 DAY RX. active Not Available Not Available No t Available escitalopram 10 mg tablet TAKE 1 TABLET BY MOUTH EVERY DAY FOR 90 DAYS active Not Available Not Available No t Available Vitals Date Recorded Body height Body mass index (BMI) Body weight Provider Name and Address Organization Details Last Updated DateTime 07/04/2024 170.18 cm 34.5 kg/m2 29728.32 g GO JANSEN [place] - [facility] 07/04/2024 17:07:12 Date Recorded Body height Body mass index (BMI) Body weight Provider Name and Address Organization Details Last Updated DateTime 07/21/2024 170.18 cm 34.5 kg/m2 66974.32 g Damon Alvares PA-C [address], [place], [address], [place] - [facility] 07/21/2024 10:07:03 Date Recorded Body height Body mass index (BMI) Body weight Body temperature Provider Name and Address Organization Details Last Updated DateTime 09/06/2024 170.18 cm 34.5 kg/m2 40575.32 g 98 [degF] Damon Alvares PA-C [address], [place], [address] , [place] - [facility] 09/06/2024 11:02:43 Social History None recorded. Functional Status None recorded. Mental Status None recorded. Family History Nothing Reported. Medical History Condition Response Allergies/Hayfever N Coronary Artery Disease N Anxiety/Depression N Breathing or lung disorders N Emphysema N Nerve Disorders N Thyroid Problems N COPD N Pacemaker N Anemia N Kidney/Bladder Problems N Vascular Disease N Heart Trouble N Heart Attack ([place]) N Gastrointestinal Disease N Cholesterol N Diabetes N Autoimmune disease N Bleeding Disorder N Inflammatory Joint disease N Orthotics N Arthritis N Seizures/Epilepsy N Blood Clot N AIDS/HIV N Congestive Heart Failure (CHF) N Acid Reflux (GERD) N Cancer N Stroke N Asthma N Circulation Problems N Peripheral Vascular Disease N Sleep Apnea N Hepatitis N Heart Disease N Rheumatoid Arthritis N Arrhythmia N Pulmonary Embolism N Headaches Y Fibromyalgia N Hypertension Y Osteoporosis N Gynecological HistoryNo gynecological history recorded. Obstetrics History GPAL:G 0 P 0 0 0 0 Past Encounters Encounter ID Performer Location Encounter Start Date Encounter Closed Date Diagnosis/Indication Diagnosis SNOMED-CT Code Diagnosis ICD10 Code Diagnosis Note [id number] MAR[facility] [address] [place] [address] 07/04/2024 16:40:00 07/27/2024 14:13:12 Pain of left knee joint 4536659217 78188 M25.808 [id number] [facility] Ch[facility]rabort[facility] [address] [place] [address] 07/21/2024 09:55:23 08/10/2024 09:32:35 Acute meniscal tear, medial 792501183 S83.232A [id number] [facility] Chakraborty [address] [place] [address] 09/06/2024 10:38:23 09/26/2024 15:12:09 History of operative procedure on knee 330085803 Z98.890 Health Concerns Section Related Observation LastModified by Organization Detai ls LastModified Time None Recorded Concern Status LastModified by Organization Details LastModified Time None Recorded Advance Directives Directive None Recorded Payers Encounter Date Sequence Insurance Name Policy Number Policy Walker Covered Member ID Walker Member ID Guarantor Name 07/04/2024 1 [place] [id number] Martin A Radha [id number] 23 Courtney Radha 07/21/2024 1 [place] [id number] Martin A Radha [id number] 23 Courtney Radha 09/06/2024 1 [place] [id number] Martin A Radha [id number] 23 Courtney Radha Notes Date Note Type Note Provider Name and Address Organization Details Recorded Time 4 text/html I am seeing the patient today under the supervision of Dr. Vásquez who was available but who did not see the patient.History: This pleasant woman presents today for new problem of left knee pain. Pain is located about the medial aspect of her knee. She is states has been somewhat of an ongoing issue however 2 weeks ago someone stepped and twisted her knee and since then she has had pain about the medial aspect of her knee. She does normally stay relatively active exercises and runs. Has been taking it easy however pain persists. Has been taking Tylenol.PMH/PSH/MEDS/ALL /FMH/SOC HX/ROS are reviewed in detail per my medical intake sheet.General Exam: Vital signs are as noted belowMental status: Alert and lucid. 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 No spasticity or clonus noted.Extremities:Calves are soft non tender, skin intact.Orthopedic Examination:Patient has a negative straight leg raise bilaterally.Right Hip: [ ] Hip exam shows no tenderness to palpation. There is full range of motion throughout all planes without irritability. There is full muscle strength. There is negative straight leg raise. Negative for signs of impingement.Left Hip: [ ] Hip exam shows no tenderness to palpation. There is full range of motion throughout all planes without irritability. There is full muscle strength. There is negative straight leg raise. Negative for signs of impingement.Left knee: Tenderness to palpation at the medial Vishnu joint line. Markedly positive Nicole's test. Mild tenderness to palpation at the insertion of the MCL on the medial femoral condyle. Minimal effusion. No erythema or warmth. Full range of motion with pain and with depression. No gross laxity today about the knee however mild irritability with MCL stress testing.Right knee: ROM is full, stability intact both anterior, posterior, and varus/valgus stress at both 0 and 30 degrees of flexion. No meniscal tenderness. Negative Brian's maneuver. No crepitus,no effusion, 5/5 strength.Antalgic gait pattern favoring the left side. Full strength and sensation distally.X-rays: Radiographs 4 views of the left knee ordered obtained and reviewed today in the office including a standing AP, Steele view, nonweightbearing lateral views, and merchant view. These radiographs demonstrate decent preservation of joint spaces throughout all 3 compartmentsAssessment: Left knee medial meniscal tear versus MCL sprainPLAN: In regards to her knee as well as her onset of injury and her physical exam findings would recommend an MRI. Should the MRI be positive I have already discussed with her today the role of arthroscopy with medial meniscal debridement. Should the MCL strain and have no underlying meniscal damage would recommend a course of physical therapy for her. Follow-up with me to review the MRI in 2 weeks.[facility] speech recognition extrusion machine operator software was used to create portions of this document. An attempt at proofreading has been made to minimize errors. Please call for corrections. Ramez Crawley PA-C [address], [place], [address], [facility] - [facility] 07/07/2024 07:36:52 4 text/html I am seeing the patient today under the supervision of Dr. Reveles who was available but who did not see the patient. HPI: Patient is seen today for follow-up evaluation of their left knee MRI. Prior history outlined by my colleague, signs and symptoms worrisome for associated medial meniscus tear after an injury. They have been modifying their activity and working on range of motion. Patient reports intermittent sharp mechanical pain still in the knee despite initial treatment. Patient complains of occasional moderate/severe amounts of pain with ADL and frustrated by his lack of improvement wants to discuss possibility surgery at this time. MRI findings: Independently reviewed today findings include complex tear posterior horn medial meniscus, intact cruciate and collateral ligaments, mild grade 2 changes and chondromalacia otherwise noted. PMH: Hypertension Family Hx: Negative Meds: Lisinopril, hydrochlorothiazide Allergies: NKDA ROS: Negative Social Hx: Negative PHYSICAL EXAMINATION: The patient is well appearing and in no apparent distress. Alert and oriented x3. Gait is symmetric. EXAM:HEENT is unremarkableHeart regular rate and rhythm without murmurs rubs gallopsAbdomen soft nontender nondistended positive bowel sounds.Lungs are clear bilaterally without rales rhonchi or wheezesPeripheral, vascular, lymphatic examination, skin, neurological, coordination, reflexes, sensation are within normal limits. Left knee ROM is full, stability intact both anterior, posterior, and varus/valgus stress at both 0 and 30 degrees of flexion. 2+ Medial and lateral joint line tenderness. Positive Brian's maneuver. Moderate crepitus,1+ effusion, 4/5 strength. IMPRESSION: Complex tear medial meniscus left knee PLAN: Patient remains frustrated by his lack of improvement like to proceed with left knee arthroscopy . Risks benefits expectation short-term goals long-term goals all of which were discussed today. No physical exam findings that would prevent patient from going for surgery this time. Expectations length of time of recovery and time to miss from work were discussed in detail today. The patient like proceed as outlined at this time. [facility] speech recognition extrusion machine operator software was used to create portions of this document. An attempt at proofreading has been made to minimize errors. Please call for corrections Damon Alvares PA-C [address] [facility] [address], [place], [address], [facility] - [facility] 07/21/2024 15:44:11 4 text/html I am seeing the patient today under the supervision of Dr. Vásquez who was available but who did not see the patient. HISTORY OF PRESENT ILLNESS The patient returns for initial postop evaluation status post left knee Arthroscopy. Patient reports no initial adverse complications during the perioperative/postoperat laquita course. They are pleased with their initial progress. Operative findings: Complex tear medial meniscus, focal grade 2 changes medial lateral compartment, small area of focal grade 3 changes trochlea PHYSICAL FINDINGS The patient ambulates with crutches, mild antalgic gait, 1+ effusion. Incision is healing well. Sutures Removed, steri's applied. No sign of infection or DVT. ASSESSMENT Status post left knee Arthroscopy PLAN Discussed plans for slow return to normal activities over 4-6 weeks. Continue modifications activities utilizing ice, oral NSAIDs as clinically indicated. Benefits of home physical therapy described and outlined in detail for the patient today. Recommendation is made for follow-up care in 6 weeks' time if patient remains symptomatic. Thalia Alvares PA-C [address] [facility] [address], [place], [address], [place] - [facility] 09/06/2024 11:50:27 OBGyn Episode No OBEpisode recorded.
[2024-11-03 10:41] LABS: Hematocrit 43.1 % (37.0-47.0); Hemoglobin 14.1 g/dl (12.0-16.0); Mean Corpuscular HGB Conc 32.7 g/dl (31.0-35.0); Mean Corpuscular Hemoglobin 27.8 pg (27.0-33.0); Mean Platelet Volume 9.5 fL (9.4-12.3); Platelet Count 365 X10*3/uL (160-400); Red Blood Count 5.07 X10*6/uL (4.20-5.50); White Blood Count 6.8 X10*3/uL (4.8-10.8)
[2024-11-03 11:24] LABS: Alanine Aminotransferase 40 U/L (0-31); Albumin Level 4.4 g/dL (3.5-5.0); Alkaline Phosphatase 85 U/L (39-117); Anion Gap 11 (12-20); Aspartate Amino Transferase 35 U/L (5-31); Bilirubin Direct 0.2 mg/dL (0.0-0.5); Bilirubin Total 0.5 mg/dL (0.0-1.0); Blood Urea Nitrogen 17 mg/dL (9-16); Calcium 9.6 mg/dL (8.4-10.2); Carbon Dioxide 25 mmol/L (22-29); Chloride 107 mmol/L (96-108); Cholesterol 233 mg/dL (<200); Estimated Glomerular Filt Rate > 60; Glucose Random 88 mg/dL (60-115); HDL Cholesterol 53 mg/dL (>40); LDL Cholesterol Calculated 154 mg/dL (<100); Potassium 3.5 mmol/L (3.3-5.1); Sodium 139 mmol/L (135-145); Triglycerides 133 mg/dL (<150)
[2024-11-03 11:30] LABS: Thyroid Stimulating Hormone 1.78 uIU/mL (0.32-4.0)
== END 2024-11-03 09:00 | disposition home or self-care (01) ==
LOC: HO.HMGCLDS 08:59
PROVIDERS: PCP Internal Medicine; Visit Provider Internal Medicine
DX: I10 Essential (primary) hypertension (principal)
CPT/HCPCS: 36415; 80048; 80061; 80076; 84443; 85027

== ENCOUNTER 2024-11-14 11:22 | Outpatient (AMB) | payer BC, SELFPAY ==
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
[2024-11-14 11:35] VITALS: BP 124/70; PULSE 73; TEMP 36.3; O2SAT 97; BMI 36.8
--- OUTSIDE RECORDS SUMMARY | 2024-11-14 12:39 | XMS_ITS ---
Author Organization Francis Bacon DO, [facility] Address [address] [place], [place] [phone] Care Team Providers Care Reed Cleaner Name Role Phone Francis Bacon Primary Care Provider [phone] REASON FOR VISIT Refills MEDICATIONS Medication SIG [...] Location Date Provider Diagnosis Francis Bacon DO, [address] [phone] 09/05/2024 Francis Bacon Anxiety F41.9 and Essential [...]
--- OUTSIDE RECORDS SUMMARY | 2024-11-14 12:39 | XMS_ITS ---
Author Organization Francis Bacon DO, FACP Address [address] [place], [place] [phone] Care Team Providers Care Yard Coordinator Name Role Phone Francis Bacon Primary Care Provider REASON FOR VISIT FYI only Encounters Encounter Location Date Provider Diagnosis Francis Bacon DO FACP [address] [place], [place] [phone] 09/05/2024 Francis Bacon PLAN OF TREATMENT No Information
--- OUTSIDE RECORDS SUMMARY | 2024-11-14 12:39 | XMS_ITS ---
Author Organization Francis Bacon DO, FACP Address [address] [place], [place] [id number] Care Team Providers Care Automatic Fancy Machine Operator Name Role Phone Francis Bacon Primary Care Provider [phone] REASON FOR VISIT 6 month f/u Encounters Encounter Location Date Provider Diagnosis Francis Bacon DO FACP [address] [place] [phone] 10/06/2024 Francis Bacon PLAN OF TREATMENT No Information
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
--- OUTSIDE RECORDS SUMMARY | 2024-11-14 12:39 | XMS_ITS ---
Author Organization [facility] Address [address] [place] [phone] Care Team Providers Care Registered Land Surveyor Name Role Phone Jordi (RETIRED) Francis SANTIAGO Primary Care Provid er Unavailable Magdaleno Dunn Jr [phone] REASON FOR VISIT pathology Encounters Encounter Location Date Provider Diagnosis [facility] [address] [place] [phone] 03/08/2024 Magdaleno Dunn Jr PLAN OF TREATMENT No Information
--- OUTSIDE RECORDS SUMMARY | 2024-11-14 12:40 | XMS_ITS ---
Author Organization [facility] Address [address] [place] [address] Care Team Providers Care Supervisor Briar Shop Name Role Phone Jordi (RETIRED) Francis SANTIAGO Primary Care Provid er Unavailable Magdaleno Dunn Jr REASON FOR VISIT screening,hx polyps Encounters Encounter Location Date Provider Diagnosis [facility] Outpatient [address] [place] [phone] 03/03/2024 Magdaleno Dunn Jr Encounter for screening [...]
--- OUTSIDE RECORDS SUMMARY | 2024-11-14 12:40 | XMS_ITS | Patient Health Record ---
Author Organization Francis Bacon DO, FACP Address [address] [place] [phone] Care Team Providers Care Cloth Baler Name Role Phone JordiFrancis nagy Primary Care Provider ALLERGIES No Known Allergies RESULTS Component Value Reference Range Notes Complete Blood Count Auto Di ff Reviewed date:04/01/2024 02:01:56 PM Interpretation:Normal Performing Lab:[facility], [address] [place] [phone] Notes/Report: White Blood Count 7.7 4.8-10.8 X10*3/uL [...] NRBC Abs Auto 0.000 0.0-0.012 X10*3/uL Comprehensive Jones. Panel Fa st Reviewed date:04/01/2024 02:04:15 PM Interpretation:Normal Performing Lab:[facility], [address] [place] [phone] Notes/Report: Sodium 142 135-145 mmol/L Potassium 3.5 3.3-5.1 mmol/L Chloride 106 96-108 mmol/L Carbon Dioxide 28 22-29 mmol/L Anion Gap 12 12-20 Blood Urea Nitrogen 17 9-16 mg/dL Creatinine 0.79 0.5-1.4 mg/dL Estimated Glomerular Filt Rate > 60 NOTE: For -[place] individuals, multiply the result by 1.210. Chronic [...] Panel Reviewed date:04/01/2024 02:04:15 PM Interpretation:Normal Performing Lab:[address] [phone] Notes/Report: Triglycerides 121 <150 mg/dL Desirable Triglyceride: [...] Total Reviewed date:04/01/2024 02:04:15 PM Interpretation:Normal Performing Lab:[address] [phone] Notes/Report: Vitamin D 25-OH Total 30.6 >30 [...] Hormone Reviewed date:04/01/2024 02:04:15 PM Interpretation:Normal Performing Lab:[facility], [address] [place] [phone] Notes/Report: Thyroid Stimulating Hormone 1.24 0.32-4.0 uIU/ mL TSH 3rd Generation ([facility]) REASON FOR REFERRAL No Information MEDICATIONS Medication SIG (Take, Route, Frequency, Duration) Notes Start Date End Date Status Zolpidem Tartrate 5 MG 1 tablet at bedti la as needed Orally Once a day for [...] Code Notes Problem Anxiety (F41.9) Active confirmed 242159 02 Problem Essential hypertensi on (I10) Active confirmed 71083743 Problem Hypercholesterolemia (E78.00) Active confirmed 47435078 VITAL SIGNS Blood pressure diastolic 70 mm Hg 04/05/2024 Height 67 in 05/02/2024 Blood pressure systolic 128 mm Hg 04/05/2024 Weight 221 lbs 05/02/2024 BMI 34.61 kg/m2 05/02/2024 Encounters Encounter Location Date Provider Diagnosis Francis Bacon DO, FACP [address] [place], [place] [phone] 03/22/2024 Francis Bacon DO, F[facility] [address] [place], [place] [phone] 04/05/2024 Francis Bacon Anxiety F41.9 and Essential hypertension I10 Francis Durand Jordi SANTAIGO, [facility] [address] [place], [place] [phone] 03/28/2024 Francis Bacon Francis Durand Jordi DO, [address] [phone] 05/02/2024 Francis Bacon Anxiety F41.9 Francis Durand Jordi DO, [facility] [address] [place], [place] [phone] 05/03/2024 Francis Bacno Francis Durand Jordi DO, [facility] [address] [place], [place] [id number] 06/21/2024 Francis Jordi Francis Bacon DO, [address] [phone] 09/05/2024 Francis Bacon Anxiety F41.9 and Essential hypertension I10 Francis Durand Jordi SANTIAGO, [facility] [address] [place], [place] [phone] 09/05/2024 Francis Jordi Francis Durand Jordi , [address] [id number] 10/06/2024 Francis Bacon ASSESSMENTS Encounter Date Diagnosis [...] Insured Coverage Start Date Coverage End Date [facility] [address] [place], [place] [phone] [id number] Courtney Garcia Self - patient is the insured MEDICAL (GENERAL) HISTORY Medical History History ICD Code hypertension hypercholesterolemia hepatitis C exposure, but no hepatitis C infection optic nerve damage, legally blind Anxiety F41.9 Surgical History Surgery Date(Month/Year) ovarian cyst resection colostomy, temporary, due to trauma section
--- OUTSIDE RECORDS SUMMARY | 2024-11-14 12:40 | XMS_ITS | Data Portability ---
Author Organization [facility], [facility] Address [address] [place] [address] Care Team Providers Care Employment Counselor Name Role Phone JORGE VILLARREAL Primary Care Provider Assessment No assessment recorded. Plan of Treatment Reminders Order Date Submit Date Provider Last Modified By Organization Details Last Modified Time Details Appointments None recorded. Lab None recorded. Referral None recorded. Procedures None recorded. Surgeries None recorded. Imaging XR, knee, 4 or more view - rm 113 LT knee 2023 [facility], [address], [address], [place], [address], 4 14:13:12 MRI, knee, w/o contrast - ? MMT of LT knee 2023 [email or web address] [facility] ([facility]), [address] [facility] [place], [place], [address], 4 14:13:12 Medication Orders None recorded. Patient [...] a4ajBk vP9nXo QUaueC m3YtLR FvZlgJ JJ8mAn HZtai3 9a4557 AC0Kqa 3mGVKG nKiQtr MwF INTERFACE [facility] [address], [place], [address], 07/04/2024 17:13:43 07/04/2007/04/2024 XR, knee, 4 or more view http:/ [email or web address] ?Encry pted=s hAaTro YD8dLq bEUv6g %2BXZw aYqtaq 0bqfl% 2Fg9IQ a4ajBk vP9nXo QUaueC m3YtLR FvZlgJ JJ8mAn HZtai3 6u2727 AC0Kqa 3mGVKG nKiQtr MwF INTERFACE [facility] [address], [place], [address], 07/04/2024 17:13:45 07/07/20 XR, knee, 1 or 2 view No observ ation record ed. [email or web address] Not Available 2023 14:18:54 07/07/20 24 06/19/2024 XR, knee, 1 or 2 view No observ ation record ed. 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 Mild myxoid degene ration in the anteri or horn of the latera l menisc us Mild chondr omalac ia patell a Electr onical ly Signed By: Rogerio Francois MD dsaa [facility] ([facility]) [address], [place], [address], 08/31/2024 16:32:42 Result Notes None recorded. Problems Name Problem SNOMED Code Status Onset Date Resolution Date Notes Provider Name and Address Organization Details Recorded Time Pain of left knee joint 860160757520074 Active 2023 GO JANSEN [place], [place] - [facility] 4 17:02:12 Acute meniscal tear, medial 152440218 Active 2023 Damon Alvares PA-C [address], [place], [address], [facility] - [facility] 06:55:29 Problem Notes None recorded. Procedures Surgical History None recorded. Imaging Results Imaging Date Name Status LastModified by Organiz ation Details LastModified Time 07/04/2024 XR, knee, 4 or more view completed INTERFACE [facility] [address], [place], [address], 07/04/2024 17:13:43 07/04/2024 XR, knee, 4 or more view completed INTERFACE [facility] [address], [place], [address], 07/04/2024 17:13:45 07/07/2024 XR, knee, 1 or 2 view completed Information not available 07/11/2024 14:18:54 06/19/2024 XR, knee, 1 or 2 view completed BARCODE Information not available 07/07/2024 12:39:17 07/18/2024 MRI, knee, w/o contrast completed dsalva [facility] ([facility]) [address], [place], [address], 08/31/2024 16:32:42 Procedure Notes None recorded. Medical [...] Updated DateTime 07/04/2024 170.18 cm 34.5 kg/m2 70107.32 g GO JANSEN [place] - [facility] 07/04/2024 17:07:12 Date Recorded Body height Body mass index (BMI) Body weight Provider Name and Address Organization Details Last Updated DateTime 07/21/2024 170.18 cm 34.5 kg/m2 55346.32 g Damon Alvares PA-C [address], [place], [address], [place] - [facility] 07/21/2024 10:07:03 Date Recorded Body height Body mass index (BMI) Body weight Body temperature Provider Name and Address Organization Details Last Updated DateTime 09/06/2024 170.18 cm 34.5 kg/m2 73881.32 g 98 [degF] Damon Alvares PA-C [address], [place], [address] , [place] - [facility] 09/06/2024 11:02:43 Social History None recorded. Functional Status None recorded. Mental Status None recorded. Family History Nothing Reported. Medical History Condition Response Allergies/Hayfever N Coronary Artery Disease N Breathing or lung disorders N Anxiety/Depression N Emphysema N Nerve Disorders N Thyroid Problems N COPD N Pacemaker N Anemia N Kidney/Bladder Problems N Vascular Disease N Heart Trouble N Heart Attack ([place]) N Gastrointestinal Disease N Cholesterol N Diabetes N Autoimmune disease N Inflammatory Joint disease N Bleeding Disorder N Orthotics N Arthritis N Seizures/Epilepsy N [...] SNOMED-CT Code Diagnosis ICD10 Code Diagnosis Note [id number] MARCIE Saravia [address] [place] [address] 07/04/2024 16:40:00 07/27/2024 14:13:12 Pain of left knee joint 2257206900 26604 M25.058 [id number] MARCIE Chakraborty [address] [place] [address] 07/21/2024 09:55:23 08/10/2024 09:32:35 Acute meniscal tear, medial 560507570 S83.232A [id number] MARCIE Chakraborty [address] [place] [address] 09/06/2024 10:38:23 09/26/2024 15:12:09 History of operative procedure on knee 038951632 Z98.890 Health Concerns Section Related Observation LastModified by Organization Detai ls LastModified Time None Recorded Concern Status LastModified by Organization Details LastModified Time None Recorded Advance Directives Directive None Recorded Payers Encounter Date Sequence Insurance Name Policy Number Policy Walker Covered Member ID Walker Member ID Guarantor Name 07/04/2024 1 [place] [id number] Martin A Radha [id number] 23 Courtney Radha 07/21/2024 1 [place] [id number] Martin A Radha [id number] 23 Courtney Radha 09/06/2024 1 [place] [id number] Martin A Radha [id number] 23 Courtney Radha Notes Date Note Type [...] Alert and lucid. 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 No spasticity [...] me to review the MRI in 2 weeks.[facility] speech recognition photo technologist software was used to create portions of this document. An attempt at proofreading has been made to minimize errors. Please call for corrections. Ramez Crawley PA-C [address], [place], [address], [facility] - [facility] 07/07/2024 07:36:52 4 text/html [...] like proceed as outlined at this time. [facility] speech recognition photo technologist software was used to create portions of this document. An attempt at proofreading has been made to minimize errors. Please call for corrections Damon Alvares PA-C [address] [facility] [address], [place], [address], [facility] - [facility] 07/21/2024 15:44:11 4 text/html [...] patient remains symptomatic. Thalia Alvares PA-C [address] [facility] [address], [place], [address], [place] - [facility] 09/06/2024 11:50:27 OBGyn Episode No OBEpisode recorded.
--- OUTSIDE RECORDS SUMMARY | 2024-11-14 12:40 | XMS_ITS ---
Author Organization [facility] Address [address] [place] [address] Care Team Providers Care Capsule Filler Name Role Phone Jordi (RETIRED) Francis SANTIAGO Primary Care Provid er Unavailable Magdaleno Dunn Jr Unavailable ALLERGIES No Known Allergies REASON FOR VISIT [...] history of colonic polyps (Z86.010) Active confirmed 780668642 Problem long-term current use of diuretic (Z79.899) Active confirmed 94246415520800620 Problem Encounter for other preprocedural examination (Z01.818) Active confirmed 814203389 VITAL SIGNS BMI 36.33 kg/m2 01/20/2024 Blood pressure systolic 00 mm Hg 01/20/20 24 Blood pressure diastolic 00 mm Hg 024 Height 67 in 01/20/2024 Weight 232 lbs 01/20/2024 Encounters Encounter Location Date Provider Diagnosis [facility] [address] [place] [address] 01/20/2024 Magdaleno Dunn Jr Colon cancer screening Z12.11 ; Encounter for other preprocedural examination Z01.818 ; Personal history of colonic polyps Z86.010 and long-term current use of diuretic Z79.899 ASSESSMENTS Encounter Date Diagnosis Assessment Notes Treatment Notes Treatment Clinical Notes 01/20/2024 Colon cancer screening (ICD-10 - Z12.11) Colonoscopy material was printed 01/20/2024 Encounter for other preprocedural examination (ICD-10 - Z01.818) 01/20/2024 Personal history of colonic polyps (ICD-10 - Z86.010) 01/20/2024 manager terminal current use of diuretic (ICD-10 - Z79.899) [...] General Examination GENERAL APPEARANCE: in no ac teresa distress HEAD: normocephalic EYES: sclera non-icteric NECK/THYROID: no lymphadenopathy HEART: S1, S2 normal, no mu rmurs CHEST: normal shape and exp ansion LUNGS: clear to auscultatio n bilaterally ABDOMEN: soft, nontender, non distended, bowel sounds present, no organomegaly SKIN: anicteric EXTREMITIES: no clubbing, cyanosi s, or edema PSYCH: cognitive function i ntact ORAL CAVITY: mucosa moist
== END 2024-11-14 12:14 | disposition home or self-care (01) ==
LOC: HO.HMCSH 11:22
PROVIDERS: PCP Internal Medicine; Visit Provider Physician Assistant Medical
DX: E78.00 Pure hypercholesterolemia, unspecified (principal); I10 Essential (primary) hypertension; E66.9 Obesity, unspecified; H54.8 Legal blindness, as defined in USA; F41.9 Anxiety disorder, unspecified; F32.A Depression, unspecified; E55.9 Vitamin D deficiency, unspecified; Z00.00 Encounter for general adult medical examination without abnormal findings

== ENCOUNTER 2024-12-15 09:29 | Outpatient (AMB) | payer BC, SELFPAY ==
--- NOTE | 2024-12-15 09:29 | MHC.PC.OV ---
Intake Visit Reasons: 1 month follow up Nuclear Medicine Supervisor Required: No Reproduction Artist: Not Required per policy Accompanied by: Self / Same As Patient Allergies No Known Allergies Allergy (Verified 12/15/24 10:08) Medication List - Last Reconciled 12/15/24 by Stephanie Brizuela PA-C bupropion HCl SR (Wellbutrin SR) 150 mg PO DAILY hydrochlorothiazide 25 mg PO DAILY lisinopril 5 mg PO DAILY tirzepatide (weight loss) (Zepbound) 2.5 mg (0.5 mL) subcut QWEEK zolpidem 5 mg PO BEDTIME Tobacco use date assessed: 12/15/24 Dental Screening Dental Screen Date: 12/15/24 Did you have a dental visit in the last 12 months?: Yes Did you have a dental problem in the last 6 months where you did not have access to dental care?: No Was dental information given to patient?: Patient has dentist [facility] Medical History (Updated 11/14/24 @ 12:16 by Stephanie Brizuela PA-C) Vitamin D deficiency Annual physical exam Obesity (BMI 30-39.9) Legal blindness of both eyes as defined in [place] History of mammogram (~07/22/22) Mild hypercholesterolemia Depression Anxiety Elevated cholesterol HTN (hypertension) Surgical History History of colostomy reversal History of colon surgery Hx of abdominal surgery Hx of section H/O colonoscopy (~03/03/24) Social History (Updated 12/15/24 @ 09:32 by MICHEAL Huang) Household Members: Spouse Housing: House Alcohol intake: current Alcohol intake frequency: a few times a month Patient Tobacco Use Status: Never used Tobacco e-Cigarette/Vaping Use: Never Used Second Hand Smoke Exposure: No service: No Current occupational status: employed Cognitive needs: No Hearing needs: No Vision needs: No Physical exam (Primary Care) Tobacco/Smoking Status: Tobacco use Status Tobacco use date assessed 12/15/24 12/15/24 09:32 Patient Tobacco Use Status Never used Tobacco 12/15/24 09:32 e-Cigarette/Vaping Use Never Used 12/15/24 09:32 Telehealth Telehealth Telehealth Platform: Telephone Location of provider rendering services: practice address Location of patient: address on file Patient Identification confirmed using: Name, : Yes Telehealth method: voice only Patient verbally consented to treatment: Yes Patient verbally consented to billing insurance company: Yes Patient informed of any privacy concerns related to visit: Yes Minutes spent on Phone/Video with Pt.: 15 Coding Level of Care Code Tele Est Pt Level 4 (87536) Complex EM visit Add On G2211 Diagnoses Obesity (BMI 30-39.9) E66.9 Anxiety F41.9 Depression F32.A HTN (hypertension) I10 Assessment & Plan Assessment & Plan (1) Obesity (BMI 30-39.9): Code(s): E66.9 - Obesity, unspecified Category: Medical Plan: The patient is advised to contact her insurance company regarding denied weight management medications. Continued efforts in resolving this obstacle are necessary due to her predisposition for metabolic burdens. (2) Anxiety: Code(s): F41.9 - Anxiety disorder, unspecified Category: Medical Plan: The patient will continue on Wellbutrin (bupropion) 150 mg daily. The current regimen is controlling her anxiety symptoms effectively. Follow-up in 6 months for reassessment of her anxiety and medication tolerance. (3) Depression: Code(s): F32.A - Depression, unspecified Category: Medical Plan: The patient will continue on Wellbutrin (bupropion) 150 mg daily. The current regimen is controlling her anxiety symptoms effectively. Follow-up in 6 months for reassessment of her anxiety and medication tolerance. (4) HTN (hypertension): Code(s): I10 - Essential (primary) hypertension Category: Medical Plan: Patient currently on lisinopril 5 mg daily, hydrochlorothiazide 25 mg daily. Blood pressure 124/70 today. Blood pressure at goal. Condition is chronic and stable continue to monitor. Plan Plan Patient was informed and verbally consented to the use of an ambient scribe for clinic note documentation during this visit. 1. Difficulty Obtaining Weight Management Medication Insurance Denial The patient is advised to contact her insurance company regarding denied weight management medications. Continued efforts in resolving this obstacle are necessary due to her predisposition for metabolic burdens. 2. Essential Hypertension Continued emphasis on lifestyle changes is advised for hypertension management. Since weight loss medication could aid her condition, follow-up actions with the insurance provider are advised to resolve prescription issues. 3. Generalized Anxiety Disorder The patient will continue on Wellbutrin (bupropion) 150 mg daily. The current regimen is controlling her anxiety symptoms effectively. Follow-up in three months for reassessment of her anxiety and medication tolerance. Discussion Notes During the telehealth visit, I discussed with the patient the current status and response to the Wellbutrin medication, which she reported as being satisfactory for anxiety management without significant issues. Furthermore, significant time was spent addressing and explaining the barriers associated with obtaining prescriptions for Wegovy and Zepbound, particularly focusing on insurance denials that are increasingly common for weight management medications. Emphasized that these issues are frequently due to tight insurance control and the need for direct patient involvement with insurers. I advised the patient to reach out directly to her insurance company to discuss denial of coverage, as additional authorizations from our office have been denied. Plans for continued medication management will be revisited at the follow-up appointment, and additional considerations for alternative weight management plans might be discussed if insurance issues persist. Medications: Refilled tirzepatide (weight loss) (Zepbound) for 4 weeks 2.5 mg (0.5 mL) subcut QWEEK 2 mL 0RF E55.9 - Vitamin D deficiency, unspecified, E66.9 - Obesity, unspecified, E78.00 - Pure hypercholesterolemia, unspecified, H54.8 - Legal blindness, as defined in [place], I10 - Essential (primary) hypertension Patient Instructions: Patient Instructions - Continue taking Wellbutrin (bupropion) 150 mg daily as currently prescribed. - Contact your insurance company directly to discuss the denied authorization for Wegovy and Zepbound. - Implement lifestyle modifications for hypertension management, including diet and exercise. - Follow up with our office in 6 months, or sooner if there are any significant changes in your symptoms or concerns. - Monitor blood pressure regularly and report any significant changes or concerns. - Cancel one of the overlapping appointments to ensure appropriate timelines for examinations. - Call us if there are any further complications or concerns regarding your medication or health management. Scribe Plan - Not visible on output: History of Present Illness The patient is a 54-year-old female presenting with concerns related to medication management for her Generalized Anxiety Disorder and Essential Hypertension. She was started on Wellbutrin (bupropion) 150 mg for her anxiety 1 month ago. She reports satisfactory control of anxiety symptoms under the current medication regimen. The patient is also dealing with complications in obtaining weight management medications due to insurance denials. She believes these medications could complement her overall treatment plan for her cardiovascular health. The prior authorization for Juanito was denied, despite attempts from the office to communicate and provide the necessary documentation for approval. This process has led to patient frustration and confusion over the roles of different parties involved, prompting a recommendation to contact her insurance directly. Review of Systems - Psychiatric: Reports improvement in anxiety symptoms with Wellbutrin. Denies side effects.
== END 2024-12-15 10:06 | disposition home or self-care (01) ==
LOC: HO.HMCH 09:29
PROVIDERS: PCP Internal Medicine; Visit Provider Physician Assistant Medical
DX: I10 Essential (primary) hypertension (principal); F41.9 Anxiety disorder, unspecified; E66.9 Obesity, unspecified; F32.A Depression, unspecified

== ENCOUNTER → 2024-12-15 09:29 | Outpatient (BNVA) | payer BC, SELFPAY | PROVIDERS: PCP Internal Medicine; Visit Provider Physician Assistant Medical ==

== ENCOUNTER 2025-09-25 13:45 | Outpatient (AMB) | payer BC, SELFPAY ==
[2025-09-25 13:51] VITALS: BP 133/67; PULSE 99; RESP 14; TEMP 36.4; O2SAT 99; BMI 33.4
--- NOTE | 2025-09-25 13:51 | A.OFFPC_ITS ---
Vital Signs 09/25/25 13:51 Height 5 ft 7 in Weight 213 lb BMI 33.4 BP 133/67 Blood Pressure Location Rt brachial Position Sitting Respiration 14 Pulse 99 Pulse Source Pulse Oximeter Temp 97.6 F Temp Source Temporal Artery Scan Pulse Oximetry (%) 99 Oxygen Delivery Method Room Air Intake Visit Reasons: follow up - see comments Infrastructure Administrator Required: No Accompanied by: Self / Same As Patient Allergies No Known Allergies Allergy (Verified 09/28/25 10:01) Medication List - Last Reconciled 09/25/25 by Ren Chi MD bupropion HCl SR (Wellbutrin SR) 300 mg (2 x 150 mg) PO DAILY 90 days hydrochlorothiazide 25 mg PO DAILY lisinopril 5 mg PO DAILY zolpidem 5 mg PO BEDTIME Tobacco use date assessed: 12/15/24 Dental Screening Dental Screen Date: 12/15/24 HPI HPI Comments History of Present Illness Details History of Present Illness - The patient is a 55 year old female pr esenting for medication management for anxiety and depression. - She was started on bupropion 150 mg in November but reports it is not very effective, stating she still feels very anxious and depressed. - She was previously on escitalopram, wh ich she felt worked very well for her anxiety, but she discontinued it due to gaining 40 pounds. - The patient has tried therapy but does not like it and does not find it helpful. - Her weight gain was also associated wi th a torn meniscus which required knee surgery and led her to stop exercising and running. - She uses Ambien occasionally for sleep , particularly when she travels. - Her last blood work was in October, w [facility] showed cholesterol at 154. - She reports being up to date on mammog papi and colonoscopies but declines vaccines. 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 - Functional Status: She is able to func tion and perform all her activities at work. - Exercise: The patient had to stop exer cising and running after tearing her meniscus. Results - Labs: Blood work from October showed a cholesterol level of 154. [facility] Medical History Vitamin D deficiency Annual physical exam Obesity (BMI 30-39.9) Legal blindness of both eyes as defined in [place] History of mammogram (~07/22/22) Mild hypercholesterolemia Depression Anxiety Elevated cholesterol HTN (hypertension) Surgical History History of colostomy reversal History of colon surgery Hx of abdominal surgery Hx of section H/O colonoscopy (~03/03/24) Social History (Updated 09/25/25 @ 13:57 by MICHEAL Larios) Household Members: Spouse Housing: House Alcohol intake: current Alcohol intake frequency: holidays/special occasions only Patient Tobacco Use Status: Never used Tobacco e-Cigarette/Vaping Use: Never Used Second Hand Smoke Exposure: No service: No Current occupational status: employed Cognitive needs: No Hearing needs: No Vision needs: No Questionnaire PHQ-9 Over the last 2 weeks, how often have you been bothered by any of the following problems? 1. Little interest or pleasure in doing things: several days 2. Feeling down, depressed, or hopeless: several days 3. Trouble falling or staying asleep, or sleeping too much: more than half the days 4. Feeling tired or having little energy: more than half the days 5. Poor appetite or overeating: not at all 6. Feeling bad about yourself - or that you are a failure or have let yourself or your family down: more than half the days 7. Trouble concentrating on things, such as reading the newspaper or watching television: not at all 8. Moving or speaking so slowly that other people could have noticed. Or the opposite - being so fidgety or restless that you have been moving around a lot more than usual: not at all 9. Thoughts that you would be better off or of hurting yourself in some way: not at all Total score: 8 Source: Developed by Drs. Francis Arguelles, Sherry Hernandez, Neftali Moe and colleagues, with an educational yolette from [employer]. Thrive Questionnaire Date Thrive assessed: 09/25/25 I am a: Patient What is your living situation today?: I have a steady place to live Within the past 12 months, did the food you bought not last and you didn't have the money to get more?: Never true Within the past 12 months, did you worry whether your food would run out before you got money to buy more?: Never true Do you have trouble paying for medicines?: No Do you have trouble getting transportation to medical appointments?: No Do you have trouble paying your heating and electricity bill?: No Do you have trouble taking care of your child, family member or friend?: No Do you have trouble with day-to-day activities such as bathing, preparing meals, shopping, managing finances, etc.?: No Are you currently unemployed and looking for a job?: No Are you interested in more education?: No Please select the resources that you would like help with: None THRIVE Score: 0 AUDIT C Alcohol Use Questionnaire (AUDIT-C) 1. How often do you have a drink containing alcohol?: Monthly or less 2. How many drinks containing alcohol do you have on a typical day when you are drinking?: 1 or 2 3. How often do you have six or more drinks on one occasion?: Never Total Score: 1 SUSAN-7 AMB Questionnaire SUSAN-7 Date SUSAN - 7 assessed: 09/25/25 Feeling nervous, anxious, or on edge: 1 = Several days Not being able to stop or control worryin = More than half the days Worrying too much about different things: 2 = More than half the days Trouble relaxin = Not at all Being so restless that it is hard to sit still: 0 = Not at all Becoming easily annoyed or irritable: 2 = More than half the days Feeling afraid as if something awful might happen: 0 = Not at all Total SUSAN-7 score (0-4 normal; 5-9 mild; 10-14 moderate; 15-21 severe): 7 Source: Developed by Drs. Francis Arguelles, Sherry Hernandez, Neftali Moe and colleagues, with an educational yolette from [employer]. Review of Systems Narrative Review of Systems - Psychiatric: Reports anxiety and depression. - Neurological: Reports occasional insomnia. - Abdominal: Denies pain on palpation. Physical exam (Primary Care) Vital Signs: Last Vital Signs Temp 97.6 F 09/25/25 13:51 Pulse 99 09/25/25 13:51 Resp 14 09/25/25 13:51 BP 133/67 09/25/25 13:51 Pulse Ox 99 09/25/25 13:51 Oxygen Delivery Method Room Air 09/25/25 13:51 BMI result Body Mass Index 33.4 Tobacco/Smoking Status: Tobacco use Status Tobacco use date assessed 12/15/24 09/25/25 14:00 Patient Tobacco Use Status Never used Tobacco 09/25/25 14:00 e-Cigarette/Vaping Use Never Used 09/25/25 14:00 PHQ-9: PHQ-9 Score PHQ-9: Total score 8 09/25/25 14:38 Thrive Assessment: Date of Thrive Assessment Date Thrive assessed 09/25/25 09/25/25 14:00 Narrative Physical Exam General: Cooperative and healthy appearing Nutritional Appearance: Well nourished Orientation/consciousness: Patient oriented x3 Limitations: No limitations Head: Normal to inspection General: Appearance normal, both eyes and all related structures Neck: Normal visual inspection Chest: Normal palpation of entire chest wall Respiratory: Normal respiratory effort Neurology: Patient oriented x3 Coding Level of Care Code Est Pt Level 4 (56973) Add On Problem Visit Only Diagnoses HTN (hypertension) I10 Assessment & Plan Assessment & Plan (1) HTN (hypertension): Code(s): I10 - Essential (primary) hypertension Category: Medical Plan Plan - The dose of bupropion (Wellbutrin) will be increased to 300 mg daily for management of anxiety and depression. - The patient will take two of her current 150 mg bupropion tablets together in the morning until she finishes the supply. - A new prescription for bupropion 300 mg and a refill for Ambien will be sent to the pharmacy. - An order for fasting blood work will be placed for the patient to complete next year to recheck her cholesterol levels. - The patient is advised to send a portal message in one month to report on the effectiveness of the increased medication dose. - A follow-up visit is recommended in 3 to 6 months. Discussion Notes I discussed with the patient that her current dose of bupropion 150 mg is likely not sufficient to manage her symptoms of anxiety and depression. We reviewed two options: increasing the dose of bupropion to 300 mg or adding a second agent, buspirone. The patient preferred to increase the bupropion dose first, and we agreed to proceed with this plan. I advised her that it may take four to five weeks to notice an effect from the increased dose and instructed her to send a portal message in about a month to provide an update. We also discussed her cholesterol level of 154 from her October labs. While a statin is an option, we agreed to re-evaluate with fasting blood work next year, which I will order. I will send a refill for her Enmanuel as requested. We will follow up in the office in 3 to 6 months. Patient Instructions - Increase your dose of bupropion (Wellbutrin) to 300 mg per day. - You can take your two 150 mg tablets together in the morning until your current supply runs out. - Prescriptions for bupropion 300 mg and Ambien have been sent to your pharmacy. - Please send a message through the patient portal in about one month to let us know if the new medication dose is helping. - An order for fasting blood work has been placed for you to complete early next year. - Please schedule a follow-up appointment in 3 to 6 months. Orders: Orders Lipid Panel 09/25/25 I10 - Essential (primary) hypertension Liver Panel 09/25/25 I10 - Essential (primary) hypertension Thyroid Stimulating Hormone 09/25/25 I10 - Essential (primary) hypertension UA and rflx microscopic 09/25/25 I10 - Essential (primary) hypertension Complete Blood Count no Diff 09/25/25 I10 - Essential (primary) hypertension Basic Metabolic Panel 09/25/25 I10 - Essential (primary) hypertension Medications: Changed From bupropion HCl SR (Wellbutrin SR) 150 mg PO DAILY 90 tabs 1RF To bupropion HCl SR (Wellbutrin SR) 300 mg (2 x 150 mg) PO DAILY 180 tabs 1RF 90 days Refilled zolpidem 5 mg PO BEDTIME 30 tabs 0RF
--- OUTSIDE RECORDS SUMMARY | 2025-09-25 17:36 | XMS_ITS | Data Portability ---
Author Organization [facility], [facility] Address [address] [place] [address] Care Team Providers Care Spotter Name Role Phone Jorge Villarreal Primary Care Provider Assessment No assessment recorded. Plan of Treatment Reminders Order Date Submit Date Provider Name Organization Details Last Modified By Last Modified Time Details Appointments None recorde d. Lab None recorde d. Referral None recorde d. Procedures None recorde d. Surgeries None recorde d. Imaging MRI, knee, w/o contras t 2023 17:33: 43 024 Ramez Crawley PA-C [facility] ([facility]) [address], [place], [address], Paulina Amor 4 14:13:12 XR, knee, 4 or more view 2023 17:02: 27 024 Ramez Crawley PA-C [facility] [address],[facility] [address], [place], [address], Paulina Amor 14:13:12 MedicationOrders None recorde d. VaccineOrders None recorde d. Patient TargetsNo targets recorded. Patient InstructionsNo instructions recorded. Reason for Referral None Reported. Results Created Date Observation Date Name Description Value Unit Range Abnormal Flag Specimen Type Note LastModifiedBy Organization Detail LastModifiedTime 06/19/2024 06/19/2024 XR, knee, 1 or 2 view No observation recorded. Not Available Not Available 07/07/2024 12:39:17 07/04/2024 07/04/2024 knee 4 view [email or web address] ed=nuJmSltVK6yZn bEUv6g%2BXZwaYqt su4ukcm%3Be6HBm4 riCfeA2zEuEMxgeJ w1UeSUPxZvuIOC7x WfSJlga43q5616EV 6Kug9eAFQWcMjAns MwF Not Available [facility] , [address] , [place] , [address], , 07/04/2024 17:13:44 07/04/2024 07/04/2024 knee 4 view [email or web address] ed=xyAmQnqMT5tIp bEUv6g%2BXZwaYqt yf8kbxn%1Df3XLc6 qsYasN6lJhAZvmrJ s5TyZZOuQreAQB2r MrWJhcz61r2575ZI 5Xdm7rKAUIaKuXec MwF Not Available [facility] , [address] , [place] , [address], , 07/04/2024 17:13:46 07/11/2024 07/11/2024 XR, knee, 1 or 2 view No observation recorded. DANIELLA NEAL Not Available 07/11/2024 14:18:54 07/18/2024 07/18/2024 MR, knee (C-) left CPT 62902 [facility] Accession Number: [id number] Patient Name: Ambrosio Garcia Date of : 1970 Date of Exam: 07-18-2024 Referring Physician: Ramez Crawley [facility] ([facility]) [address], [address] [place] [address] Exam: MR Knee (C-) CPT 74710 - Left Room Description: [facility] 3T MRI left knee History: Pain Findings: Complex tear at the posterior horn-body junction of the medial meniscus. The tear has radial and horizontal components. Lateral meniscus is intact. Mild myxoid degeneration in the anterior horn. The ACL and PCL are intact The MCL is intact The LCL complex including the biceps femoris, popliteus and fibular collateral ligaments are intact The medial and lateral patellar retinacula are intact. Erosions within the medial patellar facet The extensor mechanism is intact. Impression: Complex tear at the posterior horn-body junction of the medial meniscus. Mild myxoid degeneration in the anterior horn of the lateral meniscus Mild chondromalacia patella Electronically Signed By: Damon Crawley PA-C [facility] ([facility]) , [address] [place] , [address], [place] , 08/31/2024 16:32:42 Result Notes Documentation Provider Name and Address Organization Details Recorded Time Xr, Knee, 4 Or More View : [email or web address] Encrypted=ggGzSnuKI2eAbwR Uv6g%6MQSizUhbqd8hgat%2Fg 1GKg3nfKkfX5kLfGUevwFc4Cz HFAtKjmXFK3tJqXGmmk71w519 6QR7Jcy7yWXPJeMtRwqMbX Not Available [facility] 07/04/2024 17:13:44 Xr, Knee, 4 Or More View : [email or web address] Encrypted=miZgGfhTY2sShbA Uv6g%9ZKQnaIamyc7zoiw%2Fg 3SGa3evZynH4jPjCVfnjPg9Bk DPNkDqnOBH6vShJBvxk74r719 7FL4Cxx0qGVSKfLfYyxLpW Not Available [facility] 07/04/2024 17:13:46 Mri, Knee, W/o Contrast : [facility] Accession Number: [id number] Patient Name: Ambrosio Garcia Date of : 1970 Date of Exam: 07-18-2024 Referring Physician: Ramez Crawley [facility] ([facility]) [address], [address] [place] [address] Exam: MR Knee (C-) CPT 41678 - Left Room Description: [facility] 3T MRI left knee History: Pain Findings: Complex tear at the posterior horn-body junction of the medial meniscus. The tear has radial and horizontal components. Lateral meniscus is intact. Mild myxoid degeneration in the anterior horn. The ACL and PCL are intact The MCL is intact The LCL complex including the biceps femoris, popliteus and fibular collateral ligaments are intact The medial and lateral patellar retinacula are intact. Erosions within the medial patellar facet The extensor mechanism is intact. Impression: Complex tear at the posterior horn-body junction of the medial meniscus. Mild myxoid degeneration in the anterior horn of the lateral meniscus Mild chondromalacia patella Electronically Signed By: Damon Crawley PA-C [address], [place], [address], [facility] 08/31/2024 16:32:42 Problems Name Problem SNOMED Code Status Onset Date Resolution Date Notes Provider Name and Address Organization Details Recorded Time Pain of left knee joint 783716511048698 Active 2023 GO JANSEN [facility] 4 17:02:12 Acute meniscal tear, medial 455950344 Active 2023 Damon Alvares PA-C [address], [place], [address], [facility] 4 06:55:29 Problem Notes None recorded. Medical Equipment None Reported. Allergies No known drug allergies Medications Name Authored On Sig Start Date Stop Date Status Note Indication Fill Status Repeat Number Dispense Quantity LastModified by Organization Details LastModified Time azith romyc in 250 mg table t 12:08:56 TAKE 2 TABL ETS BY MARVIN Morejon TODA Y, THEN TAKE 1 TABL ET MARIA DOLORES Y FOR 4 DAYS DIRE CTED active Not Available Not availab le 0 Not Available Not Available [facility] 07/04/2024 12:08:56 diclo fenac sodiu m 75 mg table t,del ayed relea se 10/08/202 4 12:08:56 TAKE 1 TABL ET WITH FOOD NEED ED ORAL LY TWIC E A DAY 30 DAYS active Not Available Not availab le 0 Not Available Not Available [facility] 07/04/2024 12:08:56 escit alopr am 10 mg table t 4 12:08:56 active Not Available Not availab le 0 Not Available Not Available [facility] 07/04/2024 12:08:56 napro xen 500 mg table t 4 13:07:35 active Not Available Not availab le 0 Not Available Not Available [facility] 09/03/2024 13:07:35 oxyco done 5 mg table t 4 13:07:35 active Not Available Not availab le 0 Not Available Not Available [facility] 09/03/2024 13:07:35 hydro chlor othia zide 25 mg table t 4 13:19:36 active Not Available Not availab le 0 Not Available Not Available [facility] 09/10/2024 13:19:36 lisin opril 5 mg table t 4 13:19:36 active Not Available Not availab le 0 Not Available Not Available [facility] 09/10/2024 13:19:36 zolpi dem 5 mg table t 4 13:19:36 active Not Available Not availab le 0 Not Available Not Available [facility] 09/10/2024 13:19:36 Vitals Date Recorded Body height Body mass index (BMI) Body weight Provider Name and Address Organization Details Last Updated DateTime 07/04/2024 170.18 cm 34.5 kg/m2 92649.32 g GO JANSEN [place] [facility] 07/04/2024 17:07:12 Date Recorded Body height Body mass index (BMI) Body weight Provider Name and Address Organization Details Last Updated DateTime 07/21/2024 170.18 cm 34.5 kg/m2 73945.32 g Damon Alvares PA-C [address] [facility] [address], [place], [address], [place] [facility] 07/21/2024 10:07:03 Date Recorded Body height Body mass index (BMI) Body weight Body temperature Provider Name and Address Organization Details Last Updated DateTime 09/06/2024 170.18 cm 34.5 kg/m2 26118.32 g 98 [degF] Damon Alvares PA-C [address], [place], [address] , [place] [facility] 09/06/2024 11:02:43 Social History Social History Observation Description Date Observed Sex Unknown 11/28/2024 Legal Sex Female Status Not (finding) 09/25/20 No social history survey screeners recorded No social history SDOH screeners recorded Functional Status None recorded. No Functional Screening assessment recorded No Functional SDOH screeners recorded Mental Status None recorded. No Mental Screening assessment recorded No Mental SDOH screeners recorded Family History Nothing Reported. Medical History Condition Response Allergies/Hayfever N Coronary Artery Disease N Anxiety/Depression N Breathing or lung disorders N Emphysema N Nerve Disorders N Thyroid Problems N COPD N Pacemaker N Anemia N Kidney/Bladder Problems N Vascular Disease N Heart Trouble N Heart Attack (CT) N Gastrointestinal Disease N Cholesterol N Diabetes [...] Diagnosis SNOMED-CT Code Diagnosis ICD10 Code Diagnosis IMO Codes Diagnosis Note [id number] MARCIE [place] [address] [place] [address] 07/04/2024 16:40:00 07/27/2024 14:13:12 Pain of left knee joint 2554843065 51859 M25.621 [id number] MARCIE Chakraborty [address] [place] [address] 07/21/2024 09:55:23 08/10/2024 09:32:35 Acute meniscal tear, medial 927583494 S83.232A [id number] Damon Alvares PA-C [facility] [address] [place] [address] 09/06/2024 10:38:23 09/26/2024 15:12:09 History of operative procedure on knee 603933568 Z98.890 680039 Health Concerns Section Related Observation LastModified by Organization Detai ls LastModified Time None Recorded Concern Status LastModified by Organization Details LastModified Time None Recorded SDOH Concern Status LastModified by Organization Detai ls LastModified Time None Recorded Advance Directives Directive None Recorded Payers Insurance Date Sequence Insurance Name Policy Number Policy Walker Covered Member ID Walker Member ID Guarantor Name 09/26/2024 1 MARSHA (PPO) [id number] Martin Garcia [id number] Ambrosio Garcia Notes Date Note Type Note Provider Name [...] Alert and lucid. Normal insight, affect and grooming.BEAUTY ARTIST: Gross motor coordination is intact. No spasticity [...] me to review the MRI in 2 weeks.[facility] speech recognition machine tool designer software was used to create portions of this document. An attempt at proofreading has been made to minimize errors. Please call for corrections. Ramez Crawley PA-C [address] [place] [address] [address] [facility], [place], [address], [facility] - [facility] 07/07/2024 07:36:52 4 text/html [...] like proceed as outlined at this time. [facility] speech recognition machine tool designer software was used to create portions of this document. An attempt at proofreading has been made to minimize errors. Please call for corrections Damon Alvares PA-C [facility] [address], [place], [address], [facility] - [facility] 07/21/2024 15:44:11 4 text/html [...] 6 weeks' time if patient remains symptomatic. Thaila Alvares PA-C [address] [place] [address] [address], [place], [address], [facility] - [facility] 09/06/2024 11:50:27 Care Team Name Role Member ID Specialty Address Phone JORGE VILLARREAL DO Primary Care Provider [id number] [place] [address] OBGyn Episode No OBEpisode recorded.
== END 2025-09-25 14:27 | disposition home or self-care (01) ==
LOC: HO.HMCSH 13:45
PROVIDERS: PCP Internal Medicine; Visit Provider Internal Medicine
DX: I10 Essential (primary) hypertension (principal)